=== PATIENT | female | born 1935 | race Caucasian/White ===

== ENCOUNTER 2016-12-05 09:39 | Inpatient (IN) | payer MEDICARE, MEDICAID ==
[2016-12-05 09:41] VITALS: BMI 25.2
--- NOTE | 2016-12-05 10:21 | C.PDOC ---
History Of Present Illness 81 yr old female presents to the ER with complaints of lower abdominal pain since 6am this morning. Treated with Tylenol without relief. Patient reports of normal bowel and bladder movements. Denies new foods, fever, chest pain, SOB, nausea, vomiting, diarrhea, dysuria, weakness or numbness. 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 Constitutional: Negative for: Fever Cardiovascular: Negative for: Chest Pain Respiratory: Negative for: Shortness of Breath Gastrointestinal: Positive for: Abdominal Pain (Lower abdominal pain), Other ((+ ) Area of swelling around the belly button. ). Negative for: Nausea, Vomiting Genitourinary: Negative for: Dysuria Neurological: Negative for: Weakness, Numbness Physical Exam - Physical Exam Appears: Well, Non-toxic, No Acute Distress Skin: Warm, Dry, No Rash Head: Atraumatic, Normacephalic Eye(s): bilateral: Normal Inspection, PERRL, EOMI Nose: Normal Oral Mucosa: Moist Neck: Normal ROM, Supple Chest: Symmetrical, No Tenderness Cardiovascular: Rhythm Regular, No Murmur Respiratory: Normal Breath Sounds, No Rales, No Wheezing Gastrointestinal/Abdominal: Soft, Tenderness (Diffuse tenderness. ), No Guarding , No Rebound, Hernia (Umbical hernia.) Back: No CVA Tenderness, No Vertebral Tenderness Extremity: Normal ROM, No Swelling Neurological/Psych: Oriented x3, Normal Speech, Normal Motor, Normal Sensation ED Course And Treatment - Laboratory Results Result Diagrams: 12/05/16 10:30 12/05/16 10:30 ECG: Interpreted By Me, Viewed By Me ECG Rhythm: Sinus Bradycardia Interpretation Of ECG: RBBB Rate From EC (BPM) O2 Sat by Pulse Oximetry: 99 (RA) Pulse Ox Interpretation: Normal - CT Scan/US CT - Abd & Pelvis Other Rad Studies (CT/US): Read By Radiologist, Radiology Report Reviewed CT/US Interpretation: PROCEDURE: CT Abdomen and Pelvis with contrast. HISTORY : abd pain. COMPARISON: None available. TECHNIQUE: Contrast dose: 100 mL Visipaque. Radiation dose: Total exam DLP = 396.98 mGy-cm. This CT exam was performed using one or more of the following dose reduction techniques: Automated exposure control, adjustment of the mA and/or kV according to patient size, and/or use of iterative reconstruction technique. FINDINGS: LOWER THORAX : Bibasilar atelectasis. No visible pleural effusion or pneumothorax. Small to moderate hiatal hernia. LIVER: Hypoattenuation of the liver compatible with hepatic steatosis. GALLBLADDER AND BILE DUCTS: Unremarkable. PANCREAS: Fatty atrophy. SPLEEN: Unremarkable. ADRENALS: Unremarkable. KIDNEYS AND URETERS: The kidneys enhance symmetrically. No hydronephrosis or obstructing calculus identified. VASCULATURE: No aortic aneurysm. BOWEL: Stomach is nondistended. Lack of oral contrast limits evaluation for bowel pathology. Bowel loops appear within normal limits of caliber without evidence of obstruction. Diverticulosis without CT evidence of acute diverticulitis. APPENDIX: The presumed appendix appears within normal limits of caliber. No secondary signs of acute appendicitis. PERITONEUM: No significant free fluid. No definite free air. LYMPH NODES: No bulky adenopathy identified. BLADDER : Unremarkable. REPRODUCTIVE: A diminutive uterus is present. BONES: Scoliosis. Multilevel degenerative changes. Osseous demineralization. Vacuum disc phenomenon at L2-L3, L3-L4, and L4-L5. OTHER FINDINGS: Fat containing ventral wall hernia measures approximately 2.2 cm in transverse dimension. IMPRESSION: Fat containing ventral wall hernia measures approximately 2.2 cm in transverse dimension. Diverticulosis without CT evidence of acute diverticulitis. Additional findings as above. Progress Note: PLAN: CT - Abd & Pelvis, EKG, Lipase, CBC, CMP, Urinalysis, Pepcid IVP & Toradol IVP. On re-evaluation, some pain persists. Spoke to Dr. Song Serna regarding the patient and agreed upon admission plan. Disposition - Disposition Disposition: HOSPITALIZED Disposition Time: 14:54 Condition: STABLE - Clinical Impression Clinical Impression: Abdominal pain, Ventral hernia - PA / COAL TRAMMER / Resident Statement MD/DO has reviewed & agrees with the documentation as recorded. - Scribe Statement The provider has reviewed the documentation as recorded by the Scribe Katiuska Hall All medical record entries made by the Aramisibe were at my direction and personally dictated by me. I have reviewed the chart and agree that the record accurately reflects my personal performance of the history, physical exam, medical decision making, and the department course for this patient. I have also personally directed, reviewed, and agree with the discharge instructions and disposition.
[2016-12-05 10:34] LABS: BASO # 0.1 K/uL (0.0-0.2); EOS % 0.4 % (0.0-4.0); HEMATOCRIT 37.1 % (34.0-47.0); LYMPH # 1.3 K/uL (1.0-4.3); LYMPH % 14.9 % (20.0-40.0); MEAN CELL VOLUME 86.9 fL (81.0-99.0); MEAN CORPUSCULAR HEMOGLOBIN 28.8 pg (27.0-31.0); MEAN CORPUSCULAR HGB CONC 33.1 g/dL (33.0-37.0); MEAN PLATELET VOLUME 9.4 fL (7.2-11.7); MONO # 0.3 K/uL (0.0-0.8); WHITE BLOOD COUNT 8.5 K/uL (4.8-10.8)
[2016-12-05 10:47] LABS: CHLORIDE 104 mmol/L (98-107); POTASSIUM 3.8 mmol/L (3.6-5.2); SODIUM 139 mmol/L (132-148)
[2016-12-05 10:49] LABS: ALB/GLOB RATIO 1.3 (1.0-2.1); ALKALINE PHOSPHATASE 87 U/L (38-126); AST/SGOT 17 U/L (14-36); BILIRUBIN,TOTAL 0.5 mg/dL (0.2-1.3); CARBON DIOXIDE 25 mmol/L (22-30); GFR AFRICAN-AMERICAN > 60; TOTAL PROTEIN 6.6 g/dL (6.3-8.3)
[2016-12-05 10:50] LABS: ALT/SGPT 18 U/L (9-52); BLOOD UREA NITROGEN 12 mg/dL (7-17); GLUCOSE,RANDOM 96 mg/dL (65-105)
[2016-12-05] MEDS ORDERED: Iodixanol 320 MG/ML 100 ML BOTTLE IV ONE (12:17)
--- NOTE | 2016-12-05 12:50 | CT ---
PROCEDURE: CT Abdomen and Pelvis with contrast HISTORY: abd pain COMPARISON: None available TECHNIQUE: Contrast dose: 100 mL Visipaque Radiation dose: Total exam DLP = 396.98 mGy-cm. This CT exam was performed using one or more of the following dose reduction techniques: Automated exposure control, adjustment of the mA and/or kV according to patient size, and/or use of iterative reconstruction technique. FINDINGS: LOWER THORAX: Bibasilar atelectasis. No visible pleural effusion or pneumothorax. Small to moderate hiatal hernia. LIVER: Hypoattenuation of the liver compatible with hepatic steatosis. GALLBLADDER AND BILE DUCTS: Unremarkable. PANCREAS: Fatty atrophy. SPLEEN: Unremarkable. ADRENALS: Unremarkable. KIDNEYS AND URETERS: The kidneys enhance symmetrically. No hydronephrosis or obstructing calculus identified. VASCULATURE: No aortic aneurysm. BOWEL: Stomach is nondistended. Lack of oral contrast limits evaluation for bowel pathology. Bowel loops appear within normal limits of caliber without evidence of obstruction. Diverticulosis without CT evidence of acute diverticulitis. APPENDIX: The presumed appendix appears within normal limits of caliber. No secondary signs of acute appendicitis. PERITONEUM: No significant free fluid. No definite free air. LYMPH NODES: No bulky adenopathy identified. BLADDER: Unremarkable. REPRODUCTIVE: A diminutive uterus is present. BONES: Scoliosis. Multilevel degenerative changes. Osseous demineralization. Vacuum disc phenomenon at L2-L3, L3-L4, and L4-L5. OTHER FINDINGS: Fat containing ventral wall hernia measures approximately 2.2 cm in transverse dimension. IMPRESSION: Fat containing ventral wall hernia measures approximately 2.2 cm in transverse dimension. Diverticulosis without CT evidence of acute diverticulitis. Additional findings as above.
[2016-12-05 13:41] LABS: RBC URINE < 1 /hpf (0-3); URINE BACTERIA RARE (<OCC); URINE BILIRUBIN NEGATIVE (NEGATIVE); URINE BLOOD NEGATIVE (NEGATIVE); URINE COLOR Straw (YELLOW); URINE GLUCOSE (UA) NORMAL (Normal); URINE KETONE NEGATIVE (NEGATIVE); URINE LEUKOCYTE ESTERASE NEG Leu/uL (Negative); URINE PROTEIN NEGATIVE (NEGATIVE); URINE UROBILINOGEN NORMAL mg/dL (0.2-1.0); WBC URINE 1 /hpf (0-5)
--- NOTE | 2016-12-05 17:38 | CP.PCM.HP ---
History of Present Illness - History of Present Illness History of Present Illness: 81-year-old female non-smoker non-EtOH abuser came because of constant abdominal painPatient has a history of umbilical hernia. It is not reducible and patient constantly have a pain on placing it patient has a severe excruciating pain eventually eventually patient was brought to the [facility] emergency room where IN Dr. Omalley saw the patient's family was bedside no chest no chest pain no shortness of breath no fever no vomiting but severe pain and it is not reducible so decided to do the CAT scan and admit the patient Present on Admission - Present on Admission Any Indicators Present on Admission: No Past Patient History - Past Social History Smoking Status: Unknown If Ever Smoked - CARDIAC Hx Hypertension: Yes - RENAL Other/Comment: UTI - MUSCULOSKELETAL/RHEUMATOLOGICAL Hx Osteoarthritis: Yes - PSYCHIATRIC Hx Substance Use: No - ANESTHESIA Hx Anesthesia: No Meds Allergies/Adverse Reactions: Allergies Allergy/AdvReac Type Severity Reaction Status Date / Time No Known Allergies Allergy Verified 12/05/16 10:51 Physical Exam - Constitutional Appears: Well - Head Exam Head Exam: ATRAUMATIC, NORMAL INSPECTION, NORMOCEPHALIC - Eye Exam Eye Exam: EOMI, Normal appearance, PERRL Pupil Exam: NORMAL ACCOMODATION, PERRL - ENT Exam ENT Exam: Mucous Membranes Moist, Normal Exam - Neck Exam Neck exam: Positive for: Normal Inspection - Respiratory Exam Respiratory Exam: Decreased Breath Sounds - Cardiovascular Exam Cardiovascular Exam: REGULAR RHYTHM, +S1, +S2 - GI/Abdominal Exam GI & Abdominal Exam: Diminished Bowel Sounds, Soft - Rectal Exam Rectal Exam: Deferred Results - Vital Signs Recent Vital Signs: Last Vital Signs Temp 98.6 F 12/05/16 10:03 Pulse 54 L 12/05/16 17:17 Resp 15 12/05/16 17:17 BP 145/66 12/05/16 17:17 Pulse Ox 100 12/05/16 17:17 - Labs Result Diagrams: 12/05/16 10:30 12/05/16 10:30 Assessment & Plan (1) Abdominal pain Status: Acute (2) Ventral hernia Status: Acute - Assessment and Plan (Free Text) Plan: Surgical consultation Protonix Lovenox after surgery N.p.o. Check the electrolytes Cardiac clearance CBC CMP and EKG Discussed with the family possible surgery tomorrow a.m. as patient is not n.p.o. and patient was seen eating biscuits
--- NOTE | 2016-12-05 17:58 | CP.PCM.CON ---
<Randal Lawrence - Last Filed: 12/05/16 17:55> History of Present Illness - History of Present Illness History of Present Illness: Gen Sx Consult: Dr Omalley Pt is an 81F with PMH of HTN. She presents with new onset umbilical pain which started around 6AM. Denies N/V, F/C. Pain was 8/10. This is first time she has had this pain. Found to have incisional hernia with incarcerated omentum. Review of Systems - Review of Systems Systems not reviewed;Unavailable: Language Barrier Past Patient History - Past Social History Smoking Status: Unknown If Ever Smoked - CARDIAC Hx Hypertension: Yes - RENAL Other/Comment: UTI - MUSCULOSKELETAL/RHEUMATOLOGICAL Hx Osteoarthritis: Yes - PSYCHIATRIC Hx Substance Use: No - ANESTHESIA Hx Anesthesia: No Meds Allergies/Adverse Reactions: Allergies Allergy/AdvReac Type Severity Reaction Status Date / Time No Known Allergies Allergy Verified 12/05/16 10:51 Physical Exam - Constitutional Appears: Non-toxic, No Acute Distress - Head Exam Head Exam: NORMOCEPHALIC - ENT Exam ENT Exam: Normal Exam - Respiratory Exam Respiratory Exam: absent: Accessory Muscle Use, Respiratory Distress - Cardiovascular Exam Cardiovascular Exam: Bradycardia, REGULAR RHYTHM - GI/Abdominal Exam GI & Abdominal Exam: Hernia (shannan-umbilical and non-reducible), Tenderness. absent: Distended, Firm - Extremities Exam Extremities exam: Negative for: pedal edema - Neurological Exam Neurological exam: Alert - Psychiatric Exam Psychiatric exam: Normal Affect, Normal Mood - Skin Skin Exam: Normal Color, Warm Results - Vital Signs Recent Vital Signs: Last Vital Signs Temp 98.6 F 12/05/16 10:03 Pulse 54 L 12/05/16 17:17 Resp 15 12/05/16 17:17 BP 145/66 12/05/16 17:17 Pulse Ox 99 12/05/16 17:54 - Labs Result Diagrams: 12/05/16 10:30 12/05/16 10:30 Assessment & Plan - Assessment and Plan (Free Text) Assessment: 81F with incarcerated hernia Plan: For OR tomorrow @ 745 AM for hernia repair Needs medical/card clearance NPO @ [place] d/w Dr Lyssa Lawrence, PGY2 - Date & Time Date: 12/05/16 Time: 17:59 <Genaro Omalley - Last Filed: 12/06/16 16:29> Meds - Medications Medications: Current Medications Amlodipine Besylate (Norvasc) 5 mg PO DAILY [facility] Last Admin: 12/06/16 07:25 Dose: 5 mg Docusate Sodium (Colace) 100 mg PO BID [facility] Hydromorphone HCl (Dilaudid) 0.5 mg IVP Q3H PRN PRN Reason: Pain, moderate (4-7) Sodium Chloride (Sodium Chloride 0.9%) 1,000 mls @ 65 mls/hr IV .[id number] [facility] Last Admin: 12/06/16 05:36 Dose: 65 mls/hr Lactated Ringer's (Lactated Ringer's) 1,000 mls @ 100 mls/hr IV .Q10H [facility] Losartan Potassium (Cozaar) 100 mg PO DAILY [facility] Last Admin: 12/06/16 07:25 Dose: 100 mg Oxycodone/Acetaminophen (Percocet 5/325 Mg Tab) 1 tab PO Q4H PRN PRN Reason: Pain, Mild (1-3) Stop: 12/09/16 09:51 Results - Vital Signs Recent Vital Signs: Last Vital Signs Temp 97.2 F L 12/06/16 09:43 Pulse 83 12/06/16 15:00 Resp 19 12/06/16 15:00 BP 113/62 12/06/16 15:00 Pulse Ox 99 12/06/16 15:00 - Labs Result Diagrams: 12/05/16 10:30 12/05/16 10:30 Labs: Laboratory Results - last 24 hr 12/06/16 06:16 PT 10.7 INR 0.9 APTT 38 H Attending/Attestation - Attestation I have personally seen and examined this patient.: Yes I have fully participated in the care of the patient.: Yes I have reviewed all pertinent clinical information: Yes Notes (Text): 12/06/16 16:26 Pt was seen and examined at bedside on 12/05/16 Agree with above note and assessment. PMH :reviewed PSH : reviewed Social history: Lives at [place], No smoking, ETOH Medication: reviewed. CT scan of A/P : reviewed. Pt with Incarcerated umbilical hernia Pt would need Umbilical hernia repair with mesh Medical clearance NPO, IVf Plan d.w pt in detail Risk and benefit explained in detail.
[2016-12-05] MEDS: Sodium Chloride 0.9% 1,000 ML IV SCH (18:42)
--- NOTE | 2016-12-05 18:56 | RAD ---
HISTORY: pre-op COMPARISON: No prior. FINDINGS: LUNGS: No active pulmonary disease. PLEURA: No significant pleural effusion identified, no pneumothorax apparent. CARDIOVASCULAR: Cardiomegaly. No evidence of acute, significant cardiovascular disease. OSSEOUS STRUCTURES: No significant abnormalities. VISUALIZED UPPER ABDOMEN: Normal. OTHER FINDINGS: None. IMPRESSION: No active disease.
[2016-12-06] MEDS: Sodium Chloride 0.9% 1,000 ML IV SCH (05:36)
[2016-12-06] MEDS ORDERED: ePHEDrine 50 mg/ml Inj ONE (07:20)
[2016-12-06] MEDS ORDERED: Rocuronium 10 mg/ml (5 ml) ONE (07:20)
[2016-12-06] MEDS ORDERED: Succinylcholine Chloride 20 mg/ml Syr (5 ml) IV ONE (07:20)
[2016-12-06] MEDS ORDERED: Phenylephrine 10 mg/ml Inj ONE (07:20)
[2016-12-06] MEDS ORDERED: Lidocaine 1% Inj (20ml) ONE (07:45)
[2016-12-06] MEDS ORDERED: Bupivacaine/Epi 0.25%-1:200,000 10 ml PF inj IJ ONE (07:45)
[2016-12-06] MEDS ORDERED: ceFAZolin IV 2 gm in Dextrose 1 GM/50 ML BAG IVPB ONE (07:45)
[2016-12-06] MEDS ORDERED: Etomidate 20 mg/10ml Inj IV ONE (07:47)
[2016-12-06] MEDS ORDERED: Propofol 10 mg/ml Inj (20 ML) ONE (07:49)
[2016-12-06 08:09] LABS: INR 0.9
[2016-12-06] MEDS ORDERED: Lactated Ringer's 1,000 ML IV SCH (08:45)
[2016-12-06] MEDS ORDERED: Neostigmine Methylsulfate 3mg/3ml Syringe IV ONE (09:29)
[2016-12-06] MEDS ORDERED: Lactated Ringer's 1,000 ML IV ONE (09:43)
--- NOTE | 2016-12-06 09:43 | CP.PCM.CON ---
History of Present Illness - History of Present Illness History of Present Illness: 81 yr old female presents to the ER with complaints of lower abdominal pain since 6am this morning. Treated with Tylenol without relief. Patient reports of normal bowel and bladder movements. Denies new foods, fever, chest pain, SOB, nausea, vomiting, diarrhea, dysuria, weakness or numbness. Found to have incisional hernia with incarcerated omentum from an old Tubal Ligation scar: We were asked to provide pre-operative risk assessment. Overall patient is an elderly female limited in activity due to age. No reports of any prior cardiovascular problems. PMHX: HTN chronic stable, osteoarthritis chronic stable, No IA or CVA PSHX: as above SOC: No tobacco, etoh, or IVDA ROS: mild arthritis; otherwise all 12 systems negative except for that in HPI Review of Systems - Review of Systems All systems: reviewed and no additional remarkable complaints except Past Patient History - Past Medical History & Family History Past Medical History?: Yes - Past Social History Smoking Status: Never Smoked - CARDIAC Hx Cardiac Disorders: Yes Hx Hypertension: Yes - PULMONARY Hx Respiratory Disorders: No - NEUROLOGICAL Hx Neurological Disorder: No - HEENT Hx HEENT Problems: No - RENAL Hx Chronic Kidney Disease: Yes Other/Comment: UTI - ENDOCRINE/METABOLIC Hx Endocrine Disorders: No - HEMATOLOGICAL/ONCOLOGICAL Hx Blood Disorders: No - INTEGUMENTARY Hx Dermatological Problems: No - MUSCULOSKELETAL/RHEUMATOLOGICAL Hx Musculoskeletal Disorders: Yes Hx Falls: No Hx Osteoarthritis: Yes - GASTROINTESTINAL Hx Gastrointestinal Disorders: Yes Other/Comment: abdominal pain. - GENITOURINARY/GYNECOLOGICAL Hx Genitourinary Disorders: No - PSYCHIATRIC Hx Psychophysiologic Disorder: No Hx Substance Use: No - SURGICAL HISTORY Hx Surgeries: Yes Other/Comment: Hysterctomy Sx years ago - ANESTHESIA Hx Anesthesia: Yes Hx Anesthesia Reactions: No Hx Malignant Hyperthermia: No Has any member of the family had a problem w/ anesthesia?: No Meds Allergies/Adverse Reactions: Allergies Allergy/AdvReac Type Severity Reaction Status Date / Time No Known Allergies Allergy Verified 12/05/16 10:51 - Medications Medications: Current Medications Amlodipine Besylate (Norvasc) 5 mg PO DAILY [facility] Last Admin: 12/06/16 07:25 Dose: 5 mg Hydromorphone HCl (Dilaudid) 0.5 mg IVP Q5M PRN PRN Reason: Pain, severe (8-10) Stop: 12/06/16 10:34 Sodium Chloride (Sodium Chloride 0.9%) 1,000 mls @ 65 mls/hr IV .[id number] [facility] Last Admin: 12/06/16 05:36 Dose: 65 mls/hr Lactated Ringer's (Lactated Ringer's) 1,000 mls @ 100 mls/hr IV .Q10H [facility] Losartan Potassium (Cozaar) 100 mg PO DAILY [facility] Last Admin: 12/06/16 07:25 Dose: 100 mg Morphine Sulfate (Morphine) 1 mg IVP Q4 PRN PRN Reason: Pain, Mild (1-3) Ondansetron HCl (Zofran Inj) 4 mg IVP ONCE PRN PRN Reason: Nausea/Vomiting Stop: 12/06/16 10:34 Physical Exam - Constitutional Appears: Older Than Stated Age - Head Exam Head Exam: ATRAUMATIC, NORMAL INSPECTION, NORMOCEPHALIC - Eye Exam Eye Exam: EOMI, Normal appearance, PERRL - ENT Exam ENT Exam: Mucous Membranes Moist, Normal Oropharynx - Respiratory Exam Respiratory Exam: Clear to Auscultation Bilateral, NORMAL BREATHING PATTERN. absent: Rhonchi, Wheezes - Cardiovascular Exam Cardiovascular Exam: REGULAR RHYTHM, +S1, +S2. absent: +S4, Systolic Murmur - GI/Abdominal Exam GI & Abdominal Exam: Soft, Tenderness - Extremities Exam Extremities exam: Positive for: normal inspection, pedal pulses present. Negative for: pedal edema, tenderness - Neurological Exam Neurological exam: Alert, Oriented x3 - Psychiatric Exam Psychiatric exam: Normal Affect, Normal Mood - Skin Skin Exam: Normal Color, Warm Results - Vital Signs Recent Vital Signs: Last Vital Signs Temp 98 F 12/06/16 09:31 Pulse 60 12/06/16 09:31 Resp 20 12/06/16 09:31 BP 140/80 12/06/16 09:31 Pulse Ox 98 12/06/16 09:31 - Labs Result Diagrams: 12/05/16 10:30 12/05/16 10:30 Labs: Laboratory Results - last 24 hr 12/06/16 06:16 PT 10.7 INR 0.9 APTT 38 H - EKG Data EKG Interpreted by: Myself (NSR, 1st deg AVB, RBBB, no acute changes) Assessment & Plan - Assessment and Plan (Free Text) Assessment: 81 y/o with incarcerated ventral hernia now s/p laproscopic repair and mesh. * Case was discussed in detail with resident in advance to surgery. * EKG: NSR, 1st deg AVB RBBB, no acute ischemic changes * No prior hx of CAD/IA or CAD/CHF sx's * No Volume overload or clinical PAD * Patient was deemed appropriate and acceptable risk for urgent surgery. Post op: expected surgical pain being controlled with pain meds -> Noted transient short lasting and hemodynamically stable SVT with spontaneous resolution pre-surgical -> current BP HR and TELE is normal with 1st deg AVB -> Avoid BB for now, resume PO losartan and amlodipine when tolerates PO -> IVF's -> monitor in TELE -> No immediate post-op complications noted. -> Monitor CBC, lytes and I&O
--- NOTE | 2016-12-06 09:49 | PCM.SURG1 ---
Surgeon's Initial Post Op Note - Surgeon's Notes Surgeon: Dr Omalley Erp Project Manager: Dr Lawrence PGY2, Dr Tsai PGY1 Type of Anesthesia: General Endo Pre-Operative Diagnosis: incarcerated umbilical hernia Operative Findings: incarcerated omentum Post-Operative Diagnosis: as above Operation Performed: laparoscopic lysis of adhesions. ventral hernia repair with mesh Specimen/Specimens Removed: hernia sac Estimated Blood Loss: EBL {In ML}: 20 Blood Products Given: N/A Drains Used: No Drains Post-Op Condition: Good Date of Surgery/Procedure: 12/06/16 Time of Surgery/Procedure: 09:48
[2016-12-06] MEDS ORDERED: Oxycodone/Acetaminophen 5/325 mg Tab PO PRN (09:50)
[2016-12-06] MEDS: HYDROmorphone 0.5 mg/0.5 ml ISec IVP PRN ×4 (09:51→23:12)
[2016-12-06] MEDS ORDERED: HYDROmorphone 0.5 mg/0.5 ml ISec IVP PRN ×2 (11:07→15:24)
[2016-12-06] MEDS ORDERED: Sodium Chloride 0.9% 1,000 ML IV ONE (12:00)
--- NOTE | 2016-12-06 13:35 | CP.PCM.PN ---
Subjective - Date & Time of Evaluation Date of Evaluation: 12/06/16 Time of Evaluation: 09:20 - Subjective Subjective: clinically same Objective - Vital Signs/Intake and Output Vital Signs (last 24 hours): Temp Pulse Resp BP Pulse Ox 97.2 F L 100 H 19 106/61 100 12/06/16 09:43 12/06/16 13:00 12/06/16 13:00 12/06/16 13:00 12/06/16 13:00 Intake and Output: 12/06/16 12/06/16 06:59 18:59 Intake Total 120 1570 Balance 120 1570 - Medications Medications: Current Medications Amlodipine Besylate (Norvasc) 5 mg PO DAILY [facility] Last Admin: 12/06/16 07:25 Dose: 5 mg Docusate Sodium (Colace) 100 mg PO BID [facility] Sodium Chloride (Sodium Chloride 0.9%) 1,000 mls @ 65 mls/hr IV .[id number] [facility] Last Admin: 12/06/16 05:36 Dose: 65 mls/hr Lactated Ringer's (Lactated Ringer's) 1,000 mls @ 100 mls/hr IV .Q10H [facility] Losartan Potassium (Cozaar) 100 mg PO DAILY [facility] Last Admin: 12/06/16 07:25 Dose: 100 mg Morphine Sulfate (Morphine) 1 mg IVP Q4 PRN PRN Reason: Pain, Mild (1-3) Oxycodone/Acetaminophen (Percocet 5/325 Mg Tab) 1 tab PO Q4H PRN PRN Reason: Pain, Mild (1-3) Stop: 12/09/16 09:51 - Labs Labs: PT 10.7 SECONDS (9.7-12.2) 12/06/16 06:16 INR 0.9 12/06/16 06:16 APTT 38 SECONDS (21-34) H 12/06/16 06:16 - Constitutional Appears: Well - Head Exam Head Exam: ATRAUMATIC, NORMAL INSPECTION, NORMOCEPHALIC - Eye Exam Eye Exam: EOMI, Normal appearance, PERRL Pupil Exam: NORMAL ACCOMODATION, PERRL - ENT Exam ENT Exam: Mucous Membranes Moist, Normal Exam - Neck Exam Neck Exam: Full ROM, Normal Inspection. absent: Lymphadenopathy - Respiratory Exam Respiratory Exam: Decreased Breath Sounds - Cardiovascular Exam Cardiovascular Exam: REGULAR RHYTHM, +S1, +S2 - GI/Abdominal Exam GI & Abdominal Exam: Soft, Diminished Bowel Sounds - Rectal Exam Rectal Exam: Deferred Assessment and Plan - Assessment and Plan (Free Text) Plan: Status post surgery no complications spoke to the family patient is n.p.o. discussed with the surgical doctor Levsin medications reviewed Lovenox to be resumed after tomorrow
--- NOTE | 2016-12-06 14:53 | OP ---
PROCEDURE DATE: 12/06/2016 PREOPERATIVE DIAGNOSIS: Incarcerated umbilical hernia containing omentum. POSTOPERATIVE DIAGNOSES: 1. Incarcerated umbilical hernia containing omentum. 2. Extensive omental adhesion to the anterior abdominal wall due to the previous/past tubal ligation . PROCEDURES DONE: 1. Laparoscopic incarcerated umbilical hernia repair with a mesh. 2. Laparoscopic extensive lysis of adhesions. SURGEON: Genaro Omalley MD CATEGORY PLANNER: Randal Lawrence, PGY-2 resident; and Augustus Tsai, PGY-1 resident. ANESTHESIA: General endotracheal tube anesthesia. ESTIMATED BLOOD LOSS: Around 10 mL. DRAINS: None. PATHOLOGY: Hernial sac and content was sent for pathology. COMPLICATIONS: None. INTRAOPERATIVE FINDINGS: The patient had extensive omental adhesion to the anterior abdominal wall a t the site of previous tubal ligation, as well as patient had incarcerated umbilical hernia containin g omentum that was reduced during operation. INTRAOPERATIVE STEPS: This 81-year-old female was diagnosed with incarcerated umbilical hernia and p atient was consented for laparoscopic incarcerated umbilical hernia repair with a mesh. Brought to he OR, placed supine on the operating table. After induction of the anesthesia, abdomen was prepped and draped in the usual sterile fashion. The left upper quadrant 5 mm incision was made using Visipo rt technique, peritoneal cavity was entered. Pneumo was created. Another 2 ports were placed in the left flank and left lower quadrant. Grasper and dissector was introduced. Extensive lysis of adhes ions was done, and hernial content was reduced back into the peritoneal cavity. The hernial defect w as closed with #2 Ethibond interrupted transfascial sutures, and after that the 9 cm mesh was implant ed. After proper implantation of the mesh, all the ports were taken out under vision. Pneumo was de flated. The specimen was sent off the table for the pathology. All the incisions were closed with a 4-0 Monocryl and dry sterile dressing was applied. The patient tolerated the procedure well. Count of instruments and gauze was correct. There was no apparent complication. Genaro Omalley MD cc: [id number] TT: 12/06/2016 14:52:39 mn
[2016-12-06] MEDS ORDERED: HYDROmorphone 0.5 mg/0.5 ml ISec ONE (15:27)
[2016-12-07] MEDS: Sodium Chloride 0.9% 1,000 ML IV SCH (02:56)
[2016-12-07] MEDS: HYDROmorphone 0.5 mg/0.5 ml ISec IVP PRN ×2 (08:42→16:32)
--- NOTE | 2016-12-07 09:24 | CP.PCM.PN ---
Subjective - Date & Time of Evaluation Date of Evaluation: 12/07/16 Time of Evaluation: 09:21 - Subjective Subjective: POST OP LAP Ventral Hernia and Mesh No postop complications No CP or SOB Afebrile Normotensive Objective - Vital Signs/Intake and Output Vital Signs (last 24 hours): Temp Pulse Resp BP Pulse Ox 97.9 F 64 18 138/80 99 12/07/16 07:15 12/07/16 07:15 12/07/16 07:15 12/07/16 07:15 12/07/16 07:15 Intake and Output: 12/07/16 12/07/16 06:59 18:59 Intake Total 1060 Balance 1060 - Medications Medications: Current Medications Amlodipine Besylate (Norvasc) 5 mg PO DAILY [facility] Last Admin: 12/06/16 07:25 Dose: 5 mg Docusate Sodium (Colace) 100 mg PO BID [facility] Last Admin: 12/06/16 19:12 Dose: 100 mg Hydromorphone HCl (Dilaudid) 0.5 mg IVP Q3H PRN PRN Reason: Pain, moderate (4-7) Last Admin: 12/07/16 08:42 Dose: 0.5 mg Sodium Chloride (Sodium Chloride 0.9%) 1,000 mls @ 65 mls/hr IV .[id number] [facility] Last Admin: 12/07/16 02:56 Dose: 65 mls/hr Lactated Ringer's (Lactated Ringer's) 1,000 mls @ 100 mls/hr IV .Q10H [facility] Losartan Potassium (Cozaar) 100 mg PO DAILY [facility] Last Admin: 12/06/16 07:25 Dose: 100 mg Oxycodone/Acetaminophen (Percocet 5/325 Mg Tab) 1 tab PO Q4H PRN PRN Reason: Pain, Mild (1-3) Stop: 12/09/16 09:51 - Labs Labs: PT 10.7 SECONDS (9.7-12.2) 12/06/16 06:16 INR 0.9 12/06/16 06:16 APTT 38 SECONDS (21-34) H 12/06/16 06:16 - Constitutional Appears: No Acute Distress, Older Than Stated Age - Head Exam Head Exam: ATRAUMATIC, NORMAL INSPECTION, NORMOCEPHALIC - Eye Exam Eye Exam: EOMI, Normal appearance, PERRL - ENT Exam ENT Exam: Mucous Membranes Moist - Neck Exam Neck Exam: Full ROM, Normal Inspection - Respiratory Exam Respiratory Exam: Clear to Ausculation Bilateral, NORMAL BREATHING PATTERN - Cardiovascular Exam Cardiovascular Exam: REGULAR RHYTHM, +S1, +S2. absent: Gallop, +S4, Murmur - Extremities Exam Extremities Exam: Full ROM, Normal Capillary Refill, Normal Inspection - Neurological Exam Neurological Exam: Alert, Awake, Oriented x3 Assessment and Plan - Assessment and Plan (Free Text) Assessment: 81 y/o with incarcerated ventral hernia now s/p laproscopic repair and mesh. 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 -> Monitor CBC, lytes and I&O --> D/C planning when appropriate
--- NOTE | 2016-12-07 11:36 | CP.PCM.PN ---
Subjective - Date & Time of Evaluation Date of Evaluation: 12/07/16 Time of Evaluation: 12:20 - Subjective Subjective: clinically same Objective - Vital Signs/Intake and Output Vital Signs (last 24 hours): Temp Pulse Resp BP Pulse Ox 97.9 F 64 18 138/80 99 12/07/16 07:15 12/07/16 07:15 12/07/16 07:15 12/07/16 07:15 12/07/16 07:15 Intake and Output: 12/07/16 12/07/16 06:59 18:59 Intake Total 1060 Balance 1060 - Medications Medications: Current Medications Amlodipine Besylate (Norvasc) 5 mg PO DAILY [facility] Last Admin: 12/07/16 10:28 Dose: 5 mg Docusate Sodium (Colace) 100 mg PO BID [facility] Last Admin: 12/07/16 10:27 Dose: 100 mg Hydromorphone HCl (Dilaudid) 0.5 mg IVP Q3H PRN PRN Reason: Pain, moderate (4-7) Last Admin: 12/07/16 08:42 Dose: 0.5 mg Sodium Chloride (Sodium Chloride 0.9%) 1,000 mls @ 65 mls/hr IV .[id number] [facility] Last Admin: 12/07/16 02:56 Dose: 65 mls/hr Lactated Ringer's (Lactated Ringer's) 1,000 mls @ 100 mls/hr IV .Q10H [facility] Losartan Potassium (Cozaar) 100 mg PO DAILY [facility] Last Admin: 12/07/16 10:28 Dose: 100 mg Oxycodone/Acetaminophen (Percocet 5/325 Mg Tab) 1 tab PO Q4H PRN PRN Reason: Pain, Mild (1-3) Stop: 12/09/16 09:51 - Labs Labs: PT 10.7 SECONDS (9.7-12.2) 12/06/16 06:16 INR 0.9 12/06/16 06:16 APTT 38 SECONDS (21-34) H 12/06/16 06:16 - Constitutional Appears: Well - Head Exam Head Exam: ATRAUMATIC, NORMAL INSPECTION, NORMOCEPHALIC - Eye Exam Eye Exam: EOMI, Normal appearance, PERRL Pupil Exam: NORMAL ACCOMODATION, PERRL - ENT Exam ENT Exam: Mucous Membranes Moist, Normal Exam - Neck Exam Neck Exam: Full ROM, Normal Inspection. absent: Lymphadenopathy - Respiratory Exam Respiratory Exam: Decreased Breath Sounds - Cardiovascular Exam Cardiovascular Exam: REGULAR RHYTHM, +S1, +S2 - GI/Abdominal Exam GI & Abdominal Exam: Soft, Diminished Bowel Sounds - Rectal Exam Rectal Exam: Deferred
[2016-12-07 12:58] LABS: BASO # 0.1 K/uL (0.0-0.2); BASO % 0.4 % (0.0-2.0); EOS % 0.1 % (0.0-4.0); HEMATOCRIT 38.3 % (34.0-47.0); LYMPH # 1.8 K/uL (1.0-4.3); LYMPH % 12.5 % (20.0-40.0); MEAN CELL VOLUME 87.8 fL (81.0-99.0); MEAN CORPUSCULAR HEMOGLOBIN 27.9 pg (27.0-31.0); MEAN CORPUSCULAR HGB CONC 31.8 g/dL (33.0-37.0); MEAN PLATELET VOLUME 9.7 fL (7.2-11.7); MONO # 0.8 K/uL (0.0-0.8); MONO % 5.6 % (0.0-10.0); RED CELL DISTRIBUTION WIDTH 14.6 % (11.5-14.5)
[2016-12-07 13:05] LABS: WHITE BLOOD COUNT 14.1 K/uL (4.8-10.8)
[2016-12-07 13:29] LABS: CHLORIDE 102 mmol/L (98-107)
[2016-12-07 13:30] LABS: SODIUM 134 mmol/L (132-148)
[2016-12-07 13:31] LABS: POTASSIUM 4.5 mmol/L (3.6-5.2)
[2016-12-07 13:33] LABS: ALB/GLOB RATIO 1.1 (1.0-2.1); ALKALINE PHOSPHATASE 90 U/L (38-126); ALT/SGPT 27 U/L (9-52); AST/SGOT 54 U/L (14-36); BLOOD UREA NITROGEN 13 mg/dL (7-17); CALCIUM 8.7 mg/dl (8.6-10.4); CARBON DIOXIDE 19 mmol/L (22-30); GFR AFRICAN-AMERICAN > 60; GLUCOSE,RANDOM 105 mg/dL (65-105); TOTAL PROTEIN 7.1 g/dL (6.3-8.3)
--- NOTE | 2016-12-07 14:35 | CP.PCM.PN ---
Subjective - Date & Time of Evaluation Date of Evaluation: 12/07/16 Time of Evaluation: 06:45 - Subjective Subjective: Gen Sx: Dr Omalley Pt S&E. [facility]. Pain well controlled. Tolerating diet. Passing flatus Objective - Vital Signs/Intake and Output Vital Signs (last 24 hours): Temp Pulse Resp BP Pulse Ox 97.9 F 64 18 138/80 99 12/07/16 07:15 12/07/16 07:15 12/07/16 07:15 12/07/16 07:15 12/07/16 07:15 Intake and Output: 12/07/16 12/07/16 06:59 18:59 Intake Total 1060 Balance 1060 - Medications Medications: Current Medications Amlodipine Besylate (Norvasc) 5 mg PO DAILY [facility] Last Admin: 12/07/16 10:28 Dose: 5 mg Docusate Sodium (Colace) 100 mg PO BID [facility] Last Admin: 12/07/16 10:27 Dose: 100 mg Hydromorphone HCl (Dilaudid) 0.5 mg IVP Q3H PRN PRN Reason: Pain, moderate (4-7) Last Admin: 12/07/16 08:42 Dose: 0.5 mg Sodium Chloride (Sodium Chloride 0.9%) 1,000 mls @ 65 mls/hr IV .[id number] [facility] Last Admin: 12/07/16 02:56 Dose: 65 mls/hr Lactated Ringer's (Lactated Ringer's) 1,000 mls @ 100 mls/hr IV .Q10H [facility] Losartan Potassium (Cozaar) 100 mg PO DAILY [facility] Last Admin: 12/07/16 10:28 Dose: 100 mg Oxycodone/Acetaminophen (Percocet 5/325 Mg Tab) 1 tab PO Q4H PRN PRN Reason: Pain, Mild (1-3) Stop: 12/09/16 09:51 - Labs Labs: 12/07/16 12:52 12/07/16 12:52 PT 10.7 SECONDS (9.7-12.2) 12/06/16 06:16 INR 0.9 12/06/16 06:16 APTT 38 SECONDS (21-34) H 12/06/16 06:16 - Constitutional Appears: Non-toxic, No Acute Distress - Respiratory Exam Respiratory Exam: absent: Accessory Muscle Use, Respiratory Distress - Cardiovascular Exam Cardiovascular Exam: REGULAR RHYTHM. absent: Tachycardia - GI/Abdominal Exam GI & Abdominal Exam: Soft, Tenderness (minimal. ). absent: Distended, Firm Additional comments: incision c/d/i - Neurological Exam Neurological Exam: Alert, Awake - Psychiatric Exam Psychiatric exam: Normal Affect, Normal Mood - Skin Skin Exam: Normal Color, Warm Assessment and Plan - Assessment and Plan (Free Text) Assessment: 81F POD#1 s/p laparoscopic ventral hernia repair Plan: pt clear for d/c from surgery follow up in clinic in 1 week Ok to shower 12/08/16 d/w Dr Lyssa Lawrence, PGY2
[2016-12-07 15:50] VITALS: BP 121/71; PULSE 66; RESP 20; TEMP 97.8; O2SAT 100
--- NOTE | 2016-12-07 16:17 | CP.PCM.PN ---
Subjective - Date & Time of Evaluation Date of Evaluation: 12/07/16 Time of Evaluation: 16:17 - Subjective Subjective: 81 Y/O FEMALE SEEN AND EXAMINED BY DR RICHARDS TODAY S/P #1 LAP VENTRAL HERNIA REPAIR PT TOLERATED REGULAR DIET, + BM, +BS 4 QUADRANT FOLLOW UP WITH SURGERY IN ONE WEEK OK TO TAKE SHOWER FROM 12/08 PER SURGERY ABX PER DR RICHARDS Objective - Vital Signs/Intake and Output Vital Signs (last 24 hours): Temp Pulse Resp BP Pulse Ox 97.8 F 66 20 121/71 100 12/07/16 15:49 12/07/16 15:49 12/07/16 15:49 12/07/16 15:49 12/07/16 15:49 Intake and Output: 12/07/16 12/07/16 06:59 18:59 Intake Total 1060 760 Balance 1060 760 - Medications Medications: Current Medications Amlodipine Besylate (Norvasc) 5 mg PO DAILY [facility] Last Admin: 12/07/16 10:28 Dose: 5 mg Docusate Sodium (Colace) 100 mg PO BID [facility] Last Admin: 12/07/16 10:27 Dose: 100 mg Hydromorphone HCl (Dilaudid) 0.5 mg IVP Q3H PRN PRN Reason: Pain, moderate (4-7) Last Admin: 12/07/16 08:42 Dose: 0.5 mg Sodium Chloride (Sodium Chloride 0.9%) 1,000 mls @ 65 mls/hr IV .[id number] [facility] Last Admin: 12/07/16 02:56 Dose: 65 mls/hr Lactated Ringer's (Lactated Ringer's) 1,000 mls @ 100 mls/hr IV .Q10H [facility] Losartan Potassium (Cozaar) 100 mg PO DAILY [facility] Last Admin: 12/07/16 10:28 Dose: 100 mg Oxycodone/Acetaminophen (Percocet 5/325 Mg Tab) 1 tab PO Q4H PRN PRN Reason: Pain, Mild (1-3) Stop: 12/09/16 09:51 - Labs Labs: 12/07/16 12:52 12/07/16 12:52 PT 10.7 SECONDS (9.7-12.2) 12/06/16 06:16 INR 0.9 12/06/16 06:16 APTT 38 SECONDS (21-34) H 12/06/16 06:16
== END 2016-12-07 17:30 | DRG 336 ==
LOC: C.ER 09:39 → C.9E 13:47 → C.3T 21:02 → C.9S 12-06 14:54 → C.6T 12-06 18:18
PROVIDERS: ADMIT Internal Medicine Nephrology; ATTEND Internal Medicine Nephrology
PROC: 0DNT4ZZ (ICD-10-PCS; 2016-12-06)
PROC: 0WUF4JZ Supplement Abdominal Wall with Synthetic Substitute, Percutaneous Endoscopic Approach (ICD-10-PCS; principal; 2016-12-06 07:45)
DX: K43.0 Incisional hernia with obstruction, without gangrene (principal); K66.0 Peritoneal adhesions (postprocedural) (postinfection); I47.1 Supraventricular tachycardia; I45.10 Unspecified right bundle-branch block; I12.9 Hypertensive chronic kidney disease with stage 1 through stage 4 chronic kidney disease, or unspecified chronic kidney disease; N18.9 Chronic kidney disease, unspecified; M19.90 Unspecified osteoarthritis, unspecified site; Z98.51 Tubal ligation status